=== PATIENT | male | born 1990 | race Caucasian/White ===

== ENCOUNTER 2018-10-15 19:53 | Emergency (ER) | payer OTHER ==
[~2018-10-15] VITALS: Ht 188 cm; Wt 115.9 kg
[2018-10-15 19:53] VITALS: BP 142/78; TEMP 99
[2018-10-15] MEDS ORDERED: NORCO 325 MG-51 TAB PO (20:38)
[2018-10-15 20:45] VITALS: PULSE 82
== END 2018-10-15 20:45 | disposition home or self-care (01) ==
LOC: COL.ER 19:53
DX: S43.102A Unspecified dislocation of left acromioclavicular joint, initial encounter (principal); V86.56XA Driver of dirt bike or motor/cross bike injured in nontraffic accident, initial encounter

== ENCOUNTER → 2021-04-17 | Outpatient (CLI) | payer OTHER ==
[~2021-04-17] MED LIST: NORCO 325 MG-51 TAB PO
[2021-04-18 00:19] LABS: EBV IGM AB Negative (())
[2021-04-22 08:52] LABS: EBV NUCLEAR ANTIGEN (EBNA)-IgG XXX
== END ==
LOC: COL.LAB 14:12
PROVIDERS: Student in an Organized Health Care Education/Training Program
DX: J03.90 Acute tonsillitis, unspecified (principal)